=== PATIENT | male | born 1970 | race Caucasian/White ===

== ENCOUNTER → 2023-03-07 | Outpatient (CLI) | payer BC, SELFPAY ==
[2023-03-07 16:49] LABS: HIV - WCH Non-Reactive (Nonreactive); Hepatitis B Surface Antigen Non-Reactive (Nonreactive); Syphilis Antibodies Non-reactive
== END | disposition home or self-care (01) ==
PROVIDERS: Referring Provider Obstetrics & Gynecology Reproductive Endocrinology; Visit Provider Obstetrics & Gynecology Reproductive Endocrinology
DX: Z00.00 Encounter for general adult medical examination without abnormal findings (principal); Z11.3 Encounter for screening for infections with a predominantly sexual mode of transmission
CPT/HCPCS: 36415; 86703; 86780; 87340

== ENCOUNTER → 2023-03-12 | Outpatient (CLI) | payer BC, SELFPAY ==
[2023-03-12 12:11] LABS: Prolactin 7.3 ng/mL; Thyroid Stim Hormone (TSH) 1.52 uIU/mL (0.358-3.74)
[2023-03-15 15:09] LABS: Anti-Cardiolipin Ab, IgG, Qn < 9 GPL U/mL (0-14); Anti-Cardiolipin Ab, IgM, Qn < 9 MPL U/mL (0-12); Beta-2-Glycoprotein I IgA <9 (0-25); Beta-2-Glycoprotein I IgG <9 (0-20); Beta-2-Glycoprotein I IgM <9 (0-32)
== END | disposition home or self-care (01) ==
PROVIDERS: Referring Provider Obstetrics & Gynecology Reproductive Endocrinology; Visit Provider Obstetrics & Gynecology Reproductive Endocrinology
DX: Z00.00 Encounter for general adult medical examination without abnormal findings (principal); E03.9 Hypothyroidism, unspecified; Z13.29 Encounter for screening for other suspected endocrine disorder; Z86.2 Personal history of diseases of the blood and blood-forming organs and certain disorders involving the immune mechanism; Z13.0 Encounter for screening for diseases of the blood and blood-forming organs and certain disorders involving the immune mechanism; Z31.440 Encounter of male for testing for genetic disease carrier status for procreative management
CPT/HCPCS: 36415; 83001; 83002; 84146; 84403; 84443; 86146; 86147

== ENCOUNTER → 2023-03-19 | Outpatient (CLI) | payer BC, SELFPAY ==
[2023-03-19 09:22] LABS: Hematocrit 43.1 % (40-54); Hemoglobin 13.8 g/dL (13.0-16.5)
[2023-03-19 11:32] LABS: Estradiol 43.8 pg/mL; Follicle Stimulating Hormone 32.2 mIU/mL; Luteinizing Hormone 20.6 mIU/mL; Prolactin 15.4 ng/mL; Thyroid Stim Hormone (TSH) 3.33 uIU/mL (0.358-3.74)
[2023-03-19 12:45] LABS: Hemoglobin A1c 6.9 % (3.8-5.6)
[2023-03-24 12:07] LABS: Testosterone, % Free 1.59 % (1.50-4.20); Testosterone, Free 4.52 ng/dL (5.00-21.00); Testosterone, Total 284 ng/dL (264-916)
== END | disposition home or self-care (01) ==
LOC: LAB 08:09
DX: R86.9 Unspecified abnormal finding in specimens from male genital organs (principal)
CPT/HCPCS: 36415; 82670; 83001; 83002; 83036; 84146; 84402; 84403; 84443; 85014; 85018

== ENCOUNTER → 2024-07-12 | Outpatient (CLI) | payer OTHER, SELFPAY ==
--- NOTE | 2024-07-12 12:40 | RAD_ITS ---
STUDY: X-RAY - LEFT KNEE REASON FOR EXAM: Male, 54 years old. Knee pain. TECHNIQUE: 5 view(s) of the knee. COMPARISON: None. FINDINGS: Osteopenia. 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 Mild arthrosis of the lateral femorotibial compartment. Mild arthrosis of the patellofemoral compartment. Joint effusion with multiple intra-articular osteochondral bodies, the largest of which measures approximately 11 mm in diameter and is located posteriorly. Vascular calcification. 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 Intra-articular osteochondral bodies with joint effusion. Electronically Signed: Dileep Zee MD at 14:01 EST ,
== END | disposition home or self-care (01) ==
PROVIDERS: Referring Provider Nurse Practitioner Family; Visit Provider Nurse Practitioner Family
DX: S83.242A Other tear of medial meniscus, current injury, left knee, initial encounter (principal); X58.XXXA Exposure to other specified factors, initial encounter
CPT/HCPCS: 73564